=== PATIENT | female | born 1970 | race African-American/Black ===

== ENCOUNTER 2016-12-11 14:48 | Outpatient (CLI) | payer OTHER ==
--- NOTE | 2016-12-11 22:24 | RAD ---
LUMBAR SPINE THREE VIEWS 12/11/16 No fracture, dislocation, or disc space narrowing was seen. The SI joints appear normal. On the lateral view, there is a questionable slight lucency in the superior posterior corner of the L5 vertebral body on both lateral views. I cannot definitely find an abnormality here on the PA film . I feel the significance of the finding is low; however, if she continues with pain, then followup with MRI might be useful. IMPRESSION: Probably negative study, but see comments above. POS: HOME
== END 2016-12-11 14:49 | disposition home or self-care (01) ==
LOC: BURRAD 14:48
PROVIDERS: ATTEND Physician Assistant
DX: M62.830 Muscle spasm of back (principal)
CPT/HCPCS: 72100

== ENCOUNTER 2017-05-29 13:58 | Outpatient (CLI) | payer OTHER ==
[2017-05-29 14:28] LABS: #Basophils 0.1 thou/uL (0.0-0.2); #Eosinphils 0.1 thou/uL (0.0-0.7); #Lymphocytes 2.1 thou/uL (1.20-3.40); #Monocytes 0.4 thou/uL (0.11-0.59); #Neutrophils 4.6 thou/uL (1.40-6.50); %Basophils 1.1 % (0.0-1.0); %Eosinophils 1.2 % (0.0-10.0); %Lymphocytes 28.6 % (21.0-51.0); %Monocytes 6.1 % (0.0-10.0); Hemoglobin 15.9 g/dL (12.0-16.0); Mean Corpuscular HGB CONC 32.4 g/dL (32.0-36.0); Mean Corpuscular Hemoglobin 25.7 pg (27.0-31.0); Mean Corpuscular Volume 79.4 fl (81.0-99.0); Mean Platelet Volume 8.5 fL (7.4-10.4); Platelet Count 218 thou/uL (130-400); RBC Distribution Width 12.4 % (11.5-14.5); Red Blood Cell (RBC) Count 6.19 mill/uL (4.20-5.40); White Blood Cell (WBC) Count 7.2 thou/uL (4.8-10.8)
[2017-05-29 14:29] LABS: ALT (SGPT) 27 U/L (8-55); AST (SGOT) 14 U/L (5-34); Albumin 4.2 g/dL (3.5-5.0); Alkaline Phosphatase 87 U/L (40-150); Anion Gap 15 mmol/L (10-20); BUN (Urea Nitrogen) 10 mg/dL (7.0-18.7); Bilirubin, Total 0.3 mg/dL (0.2-1.2); Calc. Creatinine Clearance 0 mL/min (70-130); Calcium 9.9 mg/dL (7.8-10.44); Carbon Dioxide 27 mmol/L (22-29); Chloride 101 mmol/L (98-107); Estimated GFR-MDRD 81; Globulin 4.3 g/dL (2.4-3.5); Glucose 498 mg/dL (70-105); Potassium 3.7 mmol/L (3.5-5.1); Protein, Total 8.5 g/dL (6.0-8.3); Sodium 139 mmol/L (136-145)
== END 2017-05-29 13:59 | disposition home or self-care (01) ==
LOC: HPCALD 13:58
PROVIDERS: ATTEND Physician Assistant
DX: E11.65 Type 2 diabetes mellitus with hyperglycemia (principal)
CPT/HCPCS: 36415; 80053; 84443; 85025

== ENCOUNTER 2017-06-06 15:33 | Outpatient (CLI) | payer OTHER ==
--- NOTE | 2017-06-06 22:54 | RAD ---
CHEST TWO VIEWS 06/06/2017 Comparison is made with a 05/20/2014 study. The heart is normal in size. The lungs are clear and fully inflated. There is no vascular congesti on or edema. The trachea is midline. IMPRESSION: No acute thoracic findings. POS: HOME
== END 2017-06-06 15:34 | disposition home or self-care (01) ==
LOC: BURRAD 15:33
PROVIDERS: ATTEND Physician Assistant
DX: R06.02 Shortness of breath (principal)
CPT/HCPCS: 71020

== ENCOUNTER 2017-08-14 10:07 | Outpatient (CLI) | payer OTHER ==
--- NOTE | 2017-08-14 23:03 | RAD ---
LEFT HIP TWO VIEWS 08/14/17 Comparison is made with a CT of the pelvis done at [facility] dated 06/01/16. The proximal femur appears intact. The articular surfaces of the hip joint are smooth. There is no j oint space narrowing. There is suspicion of some slight bony spurring and/or fragmentations along the margin of the left a cetabulum, but this area is obscured by the femoral head itself, so is not evaluated well. Looking b ack at the 2016 CT, I do not see anything that resembles this. If the patient is having chronic hip pain, then followup with an MRI or CT might be useful. The MRI would probably be preferred as it can tell a bit more than the CT could. IMPRESSION: Question of slight bony spurring or fragmentation along the rim of the acetabulum that is not appare nt on a CT from last year. This area is not demonstrated well on the plain films due to the overlyin g femoral head. Consider MRI or CT if further workup is deemed appropriate. POS: HOME
== END 2017-08-14 10:08 | disposition home or self-care (01) ==
LOC: BURRAD 10:07
DX: M25.552 Pain in left hip (principal)

== ENCOUNTER 2017-08-21 13:57 | Outpatient (CLI) | payer OTHER ==
--- NOTE | 2017-08-21 22:07 | RAD ---
RIGHT KNEE FOUR VIEWS 08/21/17 No acute fracture was seen. There is no joint effusion. The joint surfaces are smooth. IMPRESSION: No acute bony findings. POS: HOME
--- NOTE | 2017-08-21 22:08 | RAD ---
RIGHT KNEE FOUR VIEWS 08/21/17 No acute fracture, dislocation, or joint effusion was seen. All bones appeared intact. There are beg innings of osteophytes in the patellofemoral joint. IMPRESSION: No acute findings. POS: HOME
== END 2017-08-21 13:58 | disposition home or self-care (01) ==
LOC: BURRAD 13:57
PROVIDERS: ATTEND Physician Assistant
DX: M25.561 Pain in right knee (principal); M25.562 Pain in left knee

== ENCOUNTER 2017-12-13 23:09 | Emergency (ER) | payer OTHER | END 2017-12-13 23:48 | disposition home or self-care (01) | LOC: BURERS 23:09 | DX: S63.501A Unspecified sprain of right wrist, initial encounter (principal); E11.9 Type 2 diabetes mellitus without complications; K21.9 Gastro-esophageal reflux disease without esophagitis; E78.5 Hyperlipidemia, unspecified; I10 Essential (primary) hypertension; G43.909 Migraine, unspecified, not intractable, without status migrainosus; J45.909 Unspecified asthma, uncomplicated; F32.9 Major depressive disorder, single episode, unspecified; Z79.4 Long term (current) use of insulin; Z79.899 Other long term (current) drug therapy; X50.9XXA Other and unspecified overexertion or strenuous movements or postures, initial encounter | CPT/HCPCS: 99283 ==

== ENCOUNTER 2019-08-28 14:54 | Outpatient (CLI) | payer OTHER ==
--- NOTE | 2019-08-28 15:27 | RAD ---
EXAM: Chest PA and lateral: HISTORY: Cough x6 months COMPARISON: 06/06/2017 FINDINGS: Heart: Normal cardiac silhouette Aorta: Unremarkable Pulmonary vessels: Normal Costophrenic angles: Costophrenic angles are clear. Lungs: No consolidation or masses. Pneumothorax: No pneumothorax Osseous structures: No osseous abnormalities IMPRESSION: No acute cardiopulmonary process.
== END 2019-08-28 14:55 | disposition home or self-care (01) ==
LOC: BURRAD 14:54
DX: R05 Cough (principal)
CPT/HCPCS: 71046

== ENCOUNTER 2019-09-22 10:24 | Outpatient (CLI) | payer OTHER ==
--- NOTE | 2019-09-22 17:22 | RAD ---
LEFT RING FINGER THREE VIEWS: 09/22/19 The pictures are taken with the patient's ring in place. No fracture or soft tissue abnormality was a ppreciated. The ones appear normal. IMPRESSION: No significant finding. POS: HOME
== END 2019-09-22 10:25 | disposition home or self-care (01) ==
LOC: BURRAD 10:24
PROVIDERS: ATTEND Physician Assistant
DX: R22.32 Localized swelling, mass and lump, left upper limb (principal)

== ENCOUNTER 2019-11-13 09:51 | Outpatient (CLI) | payer OTHER ==
--- NOTE | 2019-11-13 15:14 | RAD ---
LEFT KNEE 3 VIEWS: DATE: 11/13/2019. FINDINGS: No fracture or joint effusion was seen. Bony spurring is very minimal and there is no narrowing of t he joint space. IMPRESSION: No acute finding. POS: HOME
--- NOTE | 2019-11-13 15:15 | RAD ---
RIGHT KNEE 4 VIEWS: DATE: 11/13/2019. FINDINGS: Comparison is made with films of the left knee. There is some very minor bony spurring but no narrow ing of the joint space. The articular surfaces are smooth. No fracture or joint effusion was seen. IMPRESSION: No acute findings. POS: HOME
== END 2019-11-13 09:52 | disposition home or self-care (01) ==
LOC: BURRAD 09:51
PROVIDERS: ATTEND Physician Assistant
DX: M25.561 Pain in right knee (principal); M25.562 Pain in left knee

== ENCOUNTER 2020-07-27 11:24 | Emergency (ER) | payer OTHER | END 2020-07-27 11:50 | disposition home or self-care (01) | LOC: BURERS 11:24 | DX: M25.532 Pain in left wrist (principal); I10 Essential (primary) hypertension; E11.9 Type 2 diabetes mellitus without complications; Z79.4 Long term (current) use of insulin; Z79.899 Other long term (current) drug therapy | CPT/HCPCS: 99283 ==

== ENCOUNTER 2021-06-20 10:55 | Outpatient (CLI) | payer OTHER | END 2021-06-20 10:56 | disposition home or self-care (01) | LOC: BURRAD 10:55 | PROVIDERS: ATTEND Physician Assistant | DX: M25.551 Pain in right hip (principal) ==

== ENCOUNTER 2021-10-28 01:26 | Emergency (ER) | payer OTHER | END 2021-10-28 02:09 | disposition home or self-care (01) | LOC: BURERS 01:26 | DX: S93.401A Sprain of unspecified ligament of right ankle, initial encounter (principal); W19.XXXA Unspecified fall, initial encounter; E78.5 Hyperlipidemia, unspecified; I12.0 Hypertensive chronic kidney disease with stage 5 chronic kidney disease or end stage renal disease; N18.6 End stage renal disease; E11.22 Type 2 diabetes mellitus with diabetic chronic kidney disease; Z79.899 Other long term (current) drug therapy; Z79.4 Long term (current) use of insulin ==

== ENCOUNTER 2022-08-19 19:23 | Emergency (ER) | payer OTHER ==
[2022-08-19] MEDS ORDERED: HYDROcodone/Acetaminophen 5/325 mg Tablet ONE (21:01)
== END 2022-08-19 21:15 | disposition home or self-care (01) ==
LOC: BURERS 19:23
DX: S63.501A Unspecified sprain of right wrist, initial encounter (principal); E78.5 Hyperlipidemia, unspecified; E11.22 Type 2 diabetes mellitus with diabetic chronic kidney disease; I12.0 Hypertensive chronic kidney disease with stage 5 chronic kidney disease or end stage renal disease; N18.6 End stage renal disease; Z79.4 Long term (current) use of insulin; Z79.899 Other long term (current) drug therapy; X58.XXXA Exposure to other specified factors, initial encounter
CPT/HCPCS: 29125

== ENCOUNTER 2022-11-08 22:16 | Emergency (ER) | payer OTHER ==
[2022-11-08] MEDS ORDERED: Ibuprofen 800 MG TAB ONE (22:32)
== END 2022-11-08 23:07 | disposition home or self-care (01) ==
LOC: BURERS 22:16
DX: S82.831A Other fracture of upper and lower end of right fibula, initial encounter for closed fracture (principal); E11.22 Type 2 diabetes mellitus with diabetic chronic kidney disease; E11.42 Type 2 diabetes mellitus with diabetic polyneuropathy; I12.0 Hypertensive chronic kidney disease with stage 5 chronic kidney disease or end stage renal disease; N18.6 End stage renal disease; E78.5 Hyperlipidemia, unspecified; Z79.899 Other long term (current) drug therapy; X50.1XXA Overexertion from prolonged static or awkward postures, initial encounter

== ENCOUNTER 2023-04-29 16:08 | Outpatient (CLI) | payer OTHER | END 2023-04-29 16:09 | disposition home or self-care (01) | LOC: BURRAD 16:08 | PROVIDERS: ATTEND Physician Assistant | DX: M54.2 Cervicalgia (principal); M47.812 Spondylosis without myelopathy or radiculopathy, cervical region | CPT/HCPCS: 72040 ==